=== PATIENT | female | born 1945 | race Asian ===

== ENCOUNTER 2024-08-28 04:37 | Inpatient (IN) | payer OTHER, MEDICAID ==
[~2024-08-28] VITALS: Ht 152.4 cm; Wt 54.9 kg
[2024-08-28 05:39] LABS: BASOPHILS % 0.6 % (0.0-2.0); EOSINOPHILS % 2.6 % (0.0-5.0); HEMATOCRIT. 29.3 % (36.0-48.0); LYMPHOCYTES % 40.8 % (20.0-50.0); MEAN CORPUSCULAR HEMOGLOBIN 33.9 pg (28.0-32.0); MEAN CORPUSCULAR VOLUME 99.5 fL (81.0-99.0); MEAN PLATELET VOLUME 8.3 fl (7.4-10.4); MONOCYTES % 9.8 % (2.0-8.0); NEUTROPHILS % 46.2 % (40.0-76.0); PLATELET 173 x1000/uL (130-400); RED BLOOD CELL COUNT 2.95 mill/uL (4.2-5.4); RED CELL DISTRIBUTION WIDTH 14.1 % (11.6-14.6); WHITE BLOOD COUNT 5.1 x1000/uL (4.5-11.0)
[2024-08-28] MEDS: MAGNESIUM/ALUMINUM HYDROXIDE/SIMETHICONE 30ML UDC PO ONE (05:51)
[2024-08-28] MEDS: FAMOTIDINE 20MG TABLET PO ONE (05:52)
[2024-08-28] MEDS: ONDANSETRON 4MG ODT PO ONE (05:52)
[2024-08-28 05:56] LABS: POTASSIUM 2.9 mEq/L (3.5-5.1)
[2024-08-28 06:02] LABS: CREATININE 1.8 mg/dL (0.6-1.0)
[2024-08-28 06:17] LABS: CLARITY URINE CLEAR (CLEAR); COLOR URINE YELLOW (YELLOW); GLUCOSE URINE NEGATIVE (NEGATIVE); KETONES URINE NEGATIVE (NEGATIVE); LEUKOCYTE ESTERASE URINE NEGATIVE (NEGATIVE); NITRITE URINE NEGATIVE (NEGATIVE); OCCULT BLOOD URINE NEGATIVE (NEGATIVE); PROTEIN URINE 2+ (NEGATIVE); SPECIFIC GRAVITY URINE 1.007 (1.005-1.030); UROBILINOGEN URINE 0.2 E.U./dL (0.2-1.0)
[2024-08-28 06:21] LABS: ALANINE AMINOTRANSFERASE 16 IU/L (10-49); ALBUMIN 3.8 g/dL (3.2-4.8); ASPARTATE AMINOTRANSFERASE 25 IU/L (<34); BILIRUBIN DIRECT 0.1 mg/dL (<=3.0); BILIRUBIN TOTAL 0.7 mg/dL (0.1-1.0); PROTEIN TOTAL 6.6 g/dL (6.0-8.3)
[2024-08-28 06:34] LABS: TROPONIN I HIGH SENSITIVITY 147 ng/L (3.0-34)
[2024-08-28] MEDS: POTASSIUM CHLORIDE 20MEQ/PACKET PO ONE (07:00)
[2024-08-28] MEDS: HYDRALAZINE HCL 10MG TABLET PO ONE (07:04)
[2024-08-28] MEDS ORDERED: NALOXONE HCL 0.4MG/ML VIAL IV PRN (09:00)
[2024-08-28] MEDS ORDERED: ONDANSETRON HCL 4MG/2ML INJ IV PRN (09:15)
[2024-08-28] MEDS ORDERED: ACETAMINOPHEN 325MG TABLET PO PRN (09:15)
[2024-08-28 09:19] LABS: SQUAMOUS EPITHELIAL CELL URINE FEW /lpf (RARE/1+)
[2024-08-28 09:20] LABS: BACTERIA URINE NONE SEEN; RBC URINE NONE SEEN /hpf (0-2); WBC URINE 0-2 /hpf (0-2)
[2024-08-28 09:36] VITALS: BP 169/69; PULSE 73; RESP 20; TEMP 36.6
[2024-08-28] MEDS: ENOXAPARIN 60MG/0.6ML SYR SUBCUT NR (09:42)
[2024-08-28] MEDS: AMLODIPINE 10MG TABLET PO SCH (09:43)
[2024-08-28] MEDS: ASPIRIN 325MG EC TABLET PO NR (09:43)
[2024-08-28] MEDS: PANTOPRAZOLE 40MG DR TABLET PO SCH (09:43)
[2024-08-28] MEDS: POTASSIUM CHLORIDE 20MEQ/PACKET PO NR (09:43)
[2024-08-28] MEDS: TRAMADOL 50MG TABLET PO PRN (09:43)
[2024-08-28] MEDS ORDERED: OMEP20TA23 PO (10:12)
[2024-08-28] MEDS ORDERED: NETA2.5D EACHEYE (10:12)
[2024-08-28] MEDS ORDERED: SACU1TAB PO (10:12)
[2024-08-28] MEDS ORDERED: MEMA10TA20 PO (10:12)
[2024-08-28] MEDS ORDERED: CHOL2400 PO (10:12)
[2024-08-28] MEDS ORDERED: LATA2.5D14 EACHEYE (10:12)
[2024-08-28] MEDS ORDERED: MINO2.5T2 PO (10:12)
[2024-08-28] MEDS ORDERED: CYAN250010 PO (10:12)
[2024-08-28] MEDS ORDERED: PRAV40TA58 PO (10:12)
[2024-08-28] MEDS ORDERED: *PATIENT'S OWN MEDICATION STORAGE XX SCH (10:45)
[2024-08-28] MEDS: SUCRALFATE 1G TABLET PO SCH (11:30)
[2024-08-28] MEDS: PANTOPRAZOLE SODIUM 40 MG/VIAL IV SCH (11:30)
[2024-08-28 12:00] VITALS: BP 149/74; PULSE 81; RESP 16; TEMP 37; O2SAT 98
[2024-08-28 12:13] LABS: TROPONIN I HIGH SENSITIVITY 145 ng/L (3.0-34)
[2024-08-28] MEDS ORDERED: MEMA7CAP PO (13:15)
[2024-08-28 16:00] VITALS: BP 144/68; PULSE 78; RESP 15; TEMP 36.6; O2SAT 97
[2024-08-28 20:00] VITALS: BP 123/69; PULSE 75; RESP 18; TEMP 36.7; O2SAT 98
[2024-08-28] MEDS: NETARSUDIL 0.02% EACHEYE SCH (21:07)
[2024-08-28] MEDS: LATANOPROST 0.005% OPHTH DROPS 2.5ML EACHEYE SCH (21:07)
[2024-08-28] MEDS: ENTRESTO PO SCH (21:08)
[2024-08-28] MEDS: MINOXIDIL 2.5MG TABLET PO SCH (21:09)
[2024-08-29] VITALS: BP 150/72; PULSE 70; RESP 18; TEMP 36.5; O2SAT 97
[2024-08-29 04:00] VITALS: BP 155/75; PULSE 73; RESP 18; TEMP 36.3; O2SAT 96
[2024-08-29 07:12] LABS: POTASSIUM 3.3 mEq/L (3.5-5.1)
[2024-08-29 07:13] LABS: CALCIUM 8.2 mg/dL (8.7-10.4)
[2024-08-29 07:18] LABS: CREATININE 1.6 mg/dL (0.6-1.0)
[2024-08-29 07:25] LABS: BASOPHILS % 0.5 % (0.0-2.0); EOSINOPHILS % 2.2 % (0.0-5.0); HEMATOCRIT. 26.6 % (36.0-48.0); HEMOGLOBIN. 8.9 g/dL (12.0-16.0); LYMPHOCYTES % 41.5 % (20.0-50.0); MEAN CORPUSCULAR HEMOGLOBIN 33.2 pg (28.0-32.0); MEAN CORPUSCULAR HGB CONC 33.7 g/dL (31.0-37.0); MEAN CORPUSCULAR VOLUME 98.7 fL (81.0-99.0); MEAN PLATELET VOLUME 8.5 fl (7.4-10.4); MONOCYTES % 8.7 % (2.0-8.0); NEUTROPHILS % 47.1 % (40.0-76.0); PLATELET 146 x1000/uL (130-400); WHITE BLOOD COUNT 4.7 x1000/uL (4.5-11.0)
[2024-08-29 08:00] VITALS: BP 157/64; PULSE 79; RESP 20; TEMP 36.6; O2SAT 98
[2024-08-29] MEDS: MEMANTINE HCL 5MG TABLET PO SCH (08:16)
[2024-08-29] MEDS: CYANOCOBALAMIN 1000MCG TABLET PO SCH (08:16)
[2024-08-29] MEDS: POTASSIUM CHLORIDE 20MEQ/PACKET PO NR (08:16)
[2024-08-29] MEDS: CHOLECALCIFEROL (D3) 1000 UNIT TABLET PO SCH (08:16)
[2024-08-29] MEDS ORDERED: ATORVASTATIN CALCIUM 10MG TABLET PO SCH ×2 (09:00→21:00)
[2024-08-29] MEDS ORDERED: SUCR1TAB MT (09:35)
[2024-08-29 12:00] VITALS: BP 144/68; PULSE 74; RESP 18; TEMP 36.8; O2SAT 97
[2024-08-29 12:20] VITALS: BP 140/68; PULSE 74; TEMP 98.2; O2SAT 98
== END 2024-08-29 14:12 | disposition home or self-care (01) | DRG 280 ==
LOC: ER 04:37 → 8WST 07:44
PROVIDERS: ADMIT Internal Medicine; ATTEND Internal Medicine
DX: I21.4 Non-ST elevation (NSTEMI) myocardial infarction (principal); N17.0 Acute kidney failure with tubular necrosis; K21.00 Gastro-esophageal reflux disease with esophagitis, without bleeding; D53.9 Nutritional anemia, unspecified; E87.6 Hypokalemia; R63.4 Abnormal weight loss; N18.9 Chronic kidney disease, unspecified; I12.9 Hypertensive chronic kidney disease with stage 1 through stage 4 chronic kidney disease, or unspecified chronic kidney disease
CPT/HCPCS: 36415; 80048; 80076; 81003; 84484; 85025; 93005; 99291; J1650; J2470; Q0162

== ENCOUNTER 2025-01-26 14:03 | Inpatient (IN) | payer OTHER, MEDICAID ==
[~2025-01-26] VITALS: Ht 154.9 cm; Wt 49.9 kg
[2025-01-26] VITALS (29 sets, daily range): BP systolic 103–192; BP diastolic 68–114; PULSE 68–100; RESP 11–29; TEMP 36.7–36.8; O2SAT 87–100
[~2025-01-26 14:03] MED LIST: CHOL2400 PO; CYAN250010 PO; LATA2.5D7 EACHEYE; MEMA7CAP PO; MINO2.5T2 PO; NETA2.5D EACHEYE; OMEP20TA23 PO; PRAV40TA58 PO; SACU1TAB PO; SUCR1TAB MT
[2025-01-26 14:46] LABS: BASOPHILS % 0.5 % (0.0-2.0); EOSINOPHILS % 0.0 % (0.0-5.0); HEMATOCRIT. 30.7 % (36.0-48.0); HEMOGLOBIN. 10.4 g/dL (12.0-16.0); LYMPHOCYTES % 13.4 % (20.0-50.0); MEAN PLATELET VOLUME 10.6 fl (7.4-10.4); MONOCYTES % 4.5 % (2.0-8.0); NEUTROPHILS % 81.6 % (40.0-76.0); PLATELET 121 x1000/uL (130-400); RED BLOOD CELL COUNT 3.06 mill/uL (4.2-5.4); RED CELL DISTRIBUTION WIDTH 13.7 % (11.6-14.6)
[2025-01-26 15:01] LABS: UREA NITROGEN BLOOD 33 mg/dL (9-23)
[2025-01-26 15:03] LABS: ASPARTATE AMINOTRANSFERASE 55 IU/L (<34); BILIRUBIN DIRECT 0.2 mg/dL (<=3.0); BILIRUBIN TOTAL 0.8 mg/dL (0.1-1.0); INR 0.9; PROTEIN TOTAL 7.0 g/dL (6.0-8.3)
[2025-01-26 15:22] LABS: CREATININE 2.1 mg/dL (0.6-1.0)
[2025-01-26] MEDS: IPRATROPIUM/ALBUTEROL 0.5-3(2.5)MG/3ML NEB HHN ONE (15:23)
[2025-01-26 15:25] LABS: TROPONIN I HIGH SENSITIVITY 10775 ng/L (3.0-34)
[2025-01-26] MEDS ORDERED: HEPARIN 25,000 UNITS in DEXT 5% WATER 245 ML IV SCH (15:45)
[2025-01-26] MEDS ORDERED: HEPARIN 5000 UNITS/ML VIAL IV ONE (15:45)
[2025-01-26] MEDS: NITROGLYCERIN 0.4MG TABLET SL SL ONE (16:00)
[2025-01-26] MEDS: ASPIRIN 81MG TABLET PO ONE (16:00)
[2025-01-26] MEDS: FUROSEMIDE 40MG/4ML VIAL IVP ONE (16:00)
[2025-01-26] MEDS ORDERED: IPRATROPIUM/ALBUTEROL 0.5-3(2.5)MG/3ML NEB HHN PRN (16:15)
[2025-01-26] MEDS: HEPARIN 25,000 UNITS PREMIX 250 ML IV SCH (16:28)
[2025-01-26] MEDS: HEPARIN 60 UNITS/KG BOLUS IV SCH (16:28)
[2025-01-26 17:17] LABS: TROPONIN I HIGH SENSITIVITY 14106 ng/L (3.0-34)
[2025-01-26] MEDS: HYDRALAZINE 20MG/ML VIAL IV PRN (18:41)
[2025-01-26] MEDS ORDERED: GUAIFENESIN 200MG/10ML SUGAR FREE UDC PO PRN (18:45)
[2025-01-26] MEDS ORDERED: HYDRALAZINE 20MG/ML VIAL IV PRN (18:45)
[2025-01-26] MEDS ORDERED: ACETAMINOPHEN 325MG TABLET PO PRN (18:45)
[2025-01-26] MEDS ORDERED: MORPHINE SULFATE 2 MG/ML INJ (NOT FOR IM USE) IV PRN (19:45)
[2025-01-26] MEDS ORDERED: NITROGLYCERIN 50MG PREMIX 250 ML IV PRN (19:45)
[2025-01-26] MEDS: FAMOTIDINE 20MG/2ML VIAL IV SCH (19:48)
[2025-01-26] MEDS ORDERED: NALOXONE HCL 0.4MG/ML VIAL IV PRN (20:00)
[2025-01-26] MEDS: ONDANSETRON HCL 4MG/2ML INJ IV PRN (20:49)
[2025-01-26] MEDS: KCL 20MEQ/100ML PREMIX 100 ML IV SCH (21:06)
[2025-01-26] MEDS: HYDRALAZINE HCL 50MG TABLET PO SCH (21:06)
[2025-01-26] MEDS: SODIUM CHLORIDE 0.9% 3ML FLUSH IVF SCH (21:07)
[2025-01-26] MEDS: ATORVASTATIN CALCIUM 40MG TABLET PO SCH (21:07)
[2025-01-26] MEDS: FUROSEMIDE 40MG/4ML VIAL IVP SCH (21:07)
[2025-01-26] MEDS ORDERED: HEPARIN BOLUS PRN aPTT <30 IV (23:00)
[2025-01-26] MEDS: HYDROMORPHONE HCL/PF 1MG/ML INJ IV PRN (23:07)
[2025-01-27] VITALS (99 sets, daily range): BP systolic 75–149; BP diastolic 49–91; PULSE 69–103; RESP 9–26; TEMP 36.5–37.2; O2SAT 81–100
[2025-01-27] MEDS ORDERED: DORZ10DR32 EACHEYE (00:20)
[2025-01-27] MEDS ORDERED: MINO2.5T2 MT (00:20)
[2025-01-27] MEDS ORDERED: BUME0.5T5 MT (00:20)
[2025-01-27] MEDS ORDERED: ESOM40CA65 MT (00:20)
[2025-01-27] MEDS ORDERED: FINE10TA (00:20)
[2025-01-27 05:32] LABS: BASOPHILS % 0.2 % (0.0-2.0); EOSINOPHILS % 0.0 % (0.0-5.0); HEMATOCRIT. 33.4 % (36.0-48.0); HEMOGLOBIN. 11.2 g/dL (12.0-16.0); LYMPHOCYTES % 9.7 % (20.0-50.0); MEAN PLATELET VOLUME 10.7 fl (7.4-10.4); MONOCYTES % 6.0 % (2.0-8.0); NEUTROPHILS % 84.1 % (40.0-76.0); PLATELET 113 x1000/uL (130-400); RED BLOOD CELL COUNT 3.30 mill/uL (4.2-5.4); RED CELL DISTRIBUTION WIDTH 13.7 % (11.6-14.6)
[2025-01-27 05:45] LABS: CREATININE 2.1 mg/dL (0.6-1.0); UREA NITROGEN BLOOD 37 mg/dL (9-23)
[2025-01-27 05:47] LABS: PHOSPHORUS 5.0 mg/dL (2.5-4.9)
[2025-01-27 06:51] LABS: HEPATITIS C AB NON REACTIVE (Neg) (Negative)
[2025-01-27] MEDS: FUROSEMIDE 40MG/4ML VIAL IVP SCH ×2 (08:53→18:00)
[2025-01-27] MEDS: ISOSORBIDE MONONITRATE 30MG TABLET SR 24HR PO SCH (08:54)
[2025-01-27] MEDS: MINOXIDIL 2.5MG TABLET PO SCH (08:54)
[2025-01-27] MEDS: ASPIRIN 81MG TABLET PO SCH (08:55)
[2025-01-27] MEDS ORDERED: PANTOPRAZOLE SODIUM 40 MG/VIAL IV SCH (09:00)
[2025-01-27] MEDS ORDERED: *PATIENT'S OWN MEDICATION STORAGE XX SCH (16:30)
[2025-01-27] MEDS ORDERED: NOREPINEPHRINE 8 MG in DEXT 5% WATER 242 ML IV PRN (17:45)
[2025-01-27] MEDS ORDERED: NOREPINEPHRINE 8MG/250ML PMX 250ML IV PRN (17:45)
[2025-01-27] MEDS: SUCRALFATE 1G TABLET PO SCH (18:00)
[2025-01-27 19:29] LABS: GLUCOSE URINE NEGATIVE (NEGATIVE); KETONES URINE NEGATIVE (NEGATIVE); LEUKOCYTE ESTERASE URINE NEGATIVE (NEGATIVE); NITRITE URINE NEGATIVE (NEGATIVE); OCCULT BLOOD URINE 3+ (NEGATIVE); PH URINE 5.5 (4.5-8.0); PROTEIN URINE 2+ (NEGATIVE); SPECIFIC GRAVITY URINE 1.009 (1.005-1.030); UROBILINOGEN URINE 0.2 E.U./dL (0.2-1.0)
[2025-01-27 19:40] LABS: CREATININE URINE RANDOM 36.3 mg/dL
[2025-01-27 20:05] LABS: CLARITY URINE SL HAZY (CLEAR); COLOR URINE STRAW (YELLOW)
[2025-01-27 20:07] LABS: RBC URINE 50-100 /hpf (0-2); WBC URINE 0-2 /hpf (0-2)
[2025-01-27 20:08] LABS: BACTERIA URINE TRACE; SQUAMOUS EPITHELIAL CELL URINE RARE /lpf (RARE/1+)
[2025-01-27 20:42] LABS: OSMOLALITY URINE 315.0 mOsm/kg (500-850)
[2025-01-28] VITALS (48 sets, daily range): BP systolic 91–170; BP diastolic 58–116; PULSE 83–103; RESP 14–22; TEMP 36.6–37.2; O2SAT 92–100
[2025-01-28 05:52] LABS: BASOPHILS % 0.2 % (0.0-2.0); EOSINOPHILS % 0.1 % (0.0-5.0); HEMATOCRIT. 30.2 % (36.0-48.0); HEMOGLOBIN. 10.0 g/dL (12.0-16.0); LYMPHOCYTES % 9.6 % (20.0-50.0); MEAN PLATELET VOLUME 11.2 fl (7.4-10.4); MONOCYTES % 8.8 % (2.0-8.0); NEUTROPHILS % 81.3 % (40.0-76.0); PLATELET 95 x1000/uL (130-400); RED BLOOD CELL COUNT 2.98 mill/uL (4.2-5.4); RED CELL DISTRIBUTION WIDTH 13.6 % (11.6-14.6)
[2025-01-28 06:22] LABS: CREATININE 2.4 mg/dL (0.6-1.0)
[2025-01-28 06:23] LABS: UREA NITROGEN BLOOD 45 mg/dL (9-23)
[2025-01-28 06:25] LABS: PHOSPHORUS 3.4 mg/dL (2.5-4.9)
[2025-01-28 09:05] LABS: BG BASE EXCESS -2.7 mmol/L (-2.0-3.0); BG CARBOXYHEMOGLOBIN 0.5 % (0.5-1.5); BG DEOXYHEMOGLOBIN 8.7 % (0.0-5.0); BG FRACTION INSPIRED OXYGEN 21; BG HCO3 ACT 21.8 mmol/L (21.0-28.0); BG METHEMOGLOBIN 0.3 % (0.5-1.5); BG OXYGEN SATURATION 91.2 % (94.0-98.0); BG OXYHEMOGLOBIN 90.5 % (94.0-98.0); BG PCO2 36.3 mmHg (32.0-45.0); BG PH 7.396 (7.350-7.450); BG PO2 61.1 mmHg (83.0-108.0); BG SAMPLE SITE RIGHT BRACHIAL; BG TOTAL HEMOGLOBIN 10.0 g/dL (12.0-16.0); BG VENT MODE ROOM AIR
[2025-01-28 10:31] LABS: TROPONIN I HIGH SENSITIVITY 33037 ng/L (3.0-34)
[2025-01-28] MEDS: POTASSIUM CHLORIDE 20MEQ/PACKET PO NR (12:11)
[2025-01-28 21:14] LABS: FOLIC ACID (FOLATE) SERUM 8.42 ng/mL (>5.38)
[2025-01-28 21:15] LABS: VITAMIN B12 SERUM 1516 pg/mL (211-911)
[2025-01-28] MEDS: ACETAMINOPHEN 325MG TABLET PO PRN (22:40)
[2025-01-28] MEDS: DIPHENHYDRAMINE 50MG/ML VIAL IV PRN (22:40)
[2025-01-28] MEDS: HEPARIN BOLUS PRN aPTT 30-44 IV (22:52)
[2025-01-29] VITALS (70 sets, daily range): BP systolic 91–164; BP diastolic 54–94; PULSE 74–104; RESP 14–28; TEMP 36.6–37; O2SAT 92–100
[2025-01-29 05:48] LABS: BASOPHILS % 0.3 % (0.0-2.0); EOSINOPHILS % 0.2 % (0.0-5.0); HEMATOCRIT. 25.5 % (36.0-48.0); HEMOGLOBIN. 8.7 g/dL (12.0-16.0); LYMPHOCYTES % 13.9 % (20.0-50.0); MEAN PLATELET VOLUME 10.9 fl (7.4-10.4); MONOCYTES % 9.2 % (2.0-8.0); NEUTROPHILS % 76.4 % (40.0-76.0); PLATELET 88 x1000/uL (130-400); RED BLOOD CELL COUNT 2.56 mill/uL (4.2-5.4); RED CELL DISTRIBUTION WIDTH 13.2 % (11.6-14.6)
[2025-01-29 06:08] LABS: CREATININE 2.4 mg/dL (0.6-1.0); UREA NITROGEN BLOOD 48 mg/dL (9-23)
[2025-01-29 06:10] LABS: ASPARTATE AMINOTRANSFERASE 40 IU/L (<34); BILIRUBIN DIRECT 0.2 mg/dL (<=3.0); BILIRUBIN TOTAL 0.7 mg/dL (0.1-1.0); PHOSPHORUS 2.6 mg/dL (2.5-4.9); PROTEIN TOTAL 5.3 g/dL (6.0-8.3)
[2025-01-29 06:20] LABS: TROPONIN I HIGH SENSITIVITY 18317 ng/L (3.0-34)
[2025-01-29] MEDS: FUROSEMIDE 40MG/4ML VIAL IVP SCH (08:55)
[2025-01-29] MEDS ORDERED: KCL 20MEQ/100ML PREMIX 100 ML IV SCH (09:00)
[2025-01-29] MEDS: POTASSIUM CHLORIDE 20MEQ TABLET SR PO NR (10:11)
[2025-01-29] MEDS: IRON SUCROSE COMPLEX 100 MG/5 ML ML IV SCH (12:10)
[2025-01-29 14:08] LABS: *CREATININE RANDOM URINE 38.9 mg/dL (Not Estab.); MICROALBUMIN RANDOM URINE 354.8 ug/mL (Not Estab.); MICROALBUMIN/CREATININE RATIO 912.0 mg/g creat (0-29)
[2025-01-29 17:18] LABS: BASOPHILS % 0.3 % (0.0-2.0); EOSINOPHILS % 0.2 % (0.0-5.0); HEMATOCRIT. 29.2 % (36.0-48.0); HEMOGLOBIN. 10.0 g/dL (12.0-16.0); LYMPHOCYTES % 11.6 % (20.0-50.0); MEAN PLATELET VOLUME 10.1 fl (7.4-10.4); MONOCYTES % 8.4 % (2.0-8.0); NEUTROPHILS % 79.5 % (40.0-76.0); PLATELET 118 x1000/uL (130-400); RED BLOOD CELL COUNT 2.93 mill/uL (4.2-5.4); RED CELL DISTRIBUTION WIDTH 13.6 % (11.6-14.6)
[2025-01-29] MEDS ORDERED: EPOETIN ALFA-EPBX 4,000 UNITS/ML VIAL SUBCUT SCH (21:00)
[2025-01-29] MEDS: DIPHENHYDRAMINE 50MG/ML VIAL IV PRN (23:11)
[2025-01-30] VITALS (9 sets, daily range): BP systolic 118–167; BP diastolic 69–95; PULSE 74–104; RESP 14–24; TEMP 36.9–37.2; O2SAT 94–99
[2025-01-30 06:28] LABS: BASOPHILS % 0.2 % (0.0-2.0); EOSINOPHILS % 1.0 % (0.0-5.0); HEMATOCRIT. 28.2 % (36.0-48.0); HEMOGLOBIN. 9.3 g/dL (12.0-16.0); LYMPHOCYTES % 24.7 % (20.0-50.0); MEAN PLATELET VOLUME 10.1 fl (7.4-10.4); MONOCYTES % 10.2 % (2.0-8.0); NEUTROPHILS % 63.9 % (40.0-76.0); PLATELET 113 x1000/uL (130-400); RED BLOOD CELL COUNT 2.82 mill/uL (4.2-5.4); RED CELL DISTRIBUTION WIDTH 13.7 % (11.6-14.6)
[2025-01-30 06:41] LABS: CREATININE 2.5 mg/dL (0.6-1.0)
[2025-01-30 06:42] LABS: UREA NITROGEN BLOOD 46 mg/dL (9-23)
[2025-01-30 06:44] LABS: PHOSPHORUS 2.9 mg/dL (2.5-4.9)
[2025-01-30] MEDS: POTASSIUM CHLORIDE 20MEQ TABLET SR PO SCH (12:25)
[2025-01-30] MEDS: SPIRONOLACTONE 25MG TABLET PO SCH (12:58)
[2025-01-30] MEDS: CLONIDINE 0.1MG TABLET PO PRN (16:13)
[2025-01-30] MEDS: BISACODYL 5MG TABLET PO PRN (17:49)
[2025-01-30 22:34] LABS: TROPONIN I HIGH SENSITIVITY 9642 ng/L (3.0-34)
[2025-01-31] VITALS: BP 146/77; PULSE 77; RESP 16; TEMP 36.8; O2SAT 99
[2025-01-31] MEDS ORDERED: ZOLPIDEM TARTRATE 5MG TABLET PO PRN (00:30)
[2025-01-31] MEDS: TRAMADOL 50MG TABLET PO PRN (03:49)
[2025-01-31 04:00] VITALS: BP 168/81; PULSE 85; RESP 18; TEMP 36.6; O2SAT 99
[2025-01-31 08:00] VITALS: BP 129/73; PULSE 81; RESP 18; TEMP 36.8; O2SAT 98
[2025-01-31 12:00] VITALS: BP 134/79; PULSE 80; RESP 14; TEMP 36.5; O2SAT 99
[2025-01-31] MEDS ORDERED: ASPI-1160 PO (13:53)
[2025-01-31] MEDS ORDERED: PROT40 MT (13:53)
[2025-01-31] MEDS ORDERED: TOPUD PO (13:53)
[2025-01-31] MEDS ORDERED: SUCR1TAB PO (13:53)
[2025-01-31] MEDS ORDERED: LIP40 PO (13:53)
[2025-01-31] MEDS ORDERED: SPIR25TA PO (13:53)
[2025-01-31 14:39] VITALS: BP 134/79; PULSE 80; RESP 14; TEMP 97.7
[2025-01-31 16:00] VITALS: BP 139/82; PULSE 87; RESP 15; TEMP 37.1; O2SAT 99
[2025-02-01 17:12] LABS: ANTI-MYELOPEROXIDASE AB < 0.2 units (0.0-0.9); ANTI-PROTEINASE 3 ABS < 0.2 units (0.0-0.9)
[2025-02-02 13:08] LABS: ATYPICAL P-ANCA <1:20 titer (Neg:<1:20); CYTOPLASMIC C-ANCA <1:20 titer (Neg:<1:20); PERINUCLEAR P-ANCA <1:20 titer (Neg:<1:20)
== END 2025-01-31 18:52 | disposition home or self-care (01) | DRG 280 ==
LOC: ER 14:03 → EDBEDREQSVC 15:59 → EDBEDREQ 15:59 → EDBEDREQTM 15:59 → ENRESERV 17:01 → CVICU 17:45 → 3WST 01-30 01:30
PROVIDERS: ADMIT Internal Medicine; ATTEND Internal Medicine
PROC: 5A09357 Assistance with Respiratory Ventilation, Less than 24 Consecutive Hours, Continuous Positive Airway Pressure (ICD-10-PCS; principal; 2025-01-26)
DX: I21.4 Non-ST elevation (NSTEMI) myocardial infarction (principal); I50.23 Acute on chronic systolic (congestive) heart failure; J96.01 Acute respiratory failure with hypoxia; N17.9 Acute kidney failure, unspecified; N18.4 Chronic kidney disease, stage 4 (severe); E87.1 Hypo-osmolality and hyponatremia; I13.0 Hypertensive heart and chronic kidney disease with heart failure and stage 1 through stage 4 chronic kidney disease, or unspecified chronic kidney disease; Z20.822 Contact with and (suspected) exposure to COVID-19; D50.9 Iron deficiency anemia, unspecified; F03.90 Unspecified dementia, unspecified severity, without behavioral disturbance, psychotic disturbance, mood disturbance, and anxiety; D69.6 Thrombocytopenia, unspecified; K21.9 Gastro-esophageal reflux disease without esophagitis; E78.5 Hyperlipidemia, unspecified; I95.9 Hypotension, unspecified; I1A.0 Resistant hypertension; E87.6 Hypokalemia; I25.10 Atherosclerotic heart disease of native coronary artery without angina pectoris; Z63.8 Other specified problems related to primary support group
CPT/HCPCS: 36415; 36600; 71045; 76770; 80048; 80076; 81003; 82043; 82375; 82550; 82570; 82607; 82728; 82746; 82784; 82805; 83520; 83540; 83550; 83735; 83880; 83935; 84100; 84155; 84165; 84300; 84484; 85025; 85379; 86256; 86334; 86705; 87340; 87426; 93005; 93306; 93970; 94070; 94640; 94660; 94664; 98960; 99291; A4606; J0360; J1171; J1200; J1308; J1644; J1938; J2405; J3480